=== PATIENT | male | born 2000 | race Caucasian/White ===

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

== ENCOUNTER 2021-03-23 23:26 | Emergency (ER) | payer OTHER ==
[~2021-03-23] VITALS: Ht 170.2 cm; Wt 72.6 kg
[2021-03-23 23:58] LABS: Basophils # (auto) 0 10 ^3/uL (0-0.2); Basophils % (auto) 0.4 % (0.0-2.0); Eosinophils # (auto) 0.5 10 ^3/uL (0-0.8); Eosinophils % (auto) 5.8 % (0.0-7.0); Hematocrit 42.7 % (41.0-53.0); Hemoglobin 14.6 g/dL (13.5-17.5); Lymphocytes # (auto) 1.8 10 ^3/uL (0.4-5.4); Lymphocytes % (auto) 21.7 % (10.0-50.0); Mean Corpuscular Hemoglobin 28.8 pg (28.0-32.0); Mean Corpuscular Hgb Conc. 34.2 g/dL (32.0-36.0); Mean Corpuscular Volume 84.1 fL (80.0-100.0); Monocytes # (auto) 0.4 10 ^3/uL (0-1.3); Monocytes % (auto) 5.1 % (0.0-12.0); Neutrophils # (auto) 5.5 10 ^3/uL (1.6-8.6); Nucleated Red Blood Cells % 0.2 %; Red Blood Cells 5.08 10^6/uL (4.5-5.90); White Blood Cell 8.2 10^3/uL (4.4-10.8)
[2021-03-24 00:14] LABS: Albumin 3.9 g/dL (3.4-5.0); BUN/Creatinine Ratio 19.5; Magnesium 2.1 mg/dL (1.6-2.6); Potassium 4.2 mmol/L (3.5-5.1)
[2021-03-24 00:17] LABS: Bilirubin, Total 0.2 mg/dL (0.2-1.0); Total Protein 7.7 g/dL (6.4-8.2)
[2021-03-24 01:29] VITALS: BP 101/68
== END 2021-03-24 01:38 | disposition home or self-care (01) ==
LOC: ER 23:26
DX: K82.8 Other specified diseases of gallbladder (principal)
CPT/HCPCS: 36415; 80053; 82150; 83690; 83735; 85025

== ENCOUNTER 2022-03-02 00:09 | Emergency (ER) | payer OTHER ==
[~2022-03-02] VITALS: Ht 172.7 cm; Wt 77.3 kg
[2022-03-02] MEDS ORDERED: KETOROLAC TROMETH 60MG/2ML VIAL IM ONE (00:30)
[2022-03-02] MEDS ORDERED: SODIUM CHLORIDE 0.9% 1,000 ML IV ONE (01:00)
[2022-03-02] MEDS ORDERED: PROPOFOL 10 MG/ML 20 ML IV ONE (01:00)
[2022-03-02] MEDS ORDERED: ONDANSETRON HCL 4 MG/2 ML VIAL IV ONE (01:00)
[2022-03-02] MEDS ORDERED: PROPOFOL 100 ML IV ONE (05:21)
[2022-03-02 07:59] VITALS: BP 133/81
== END 2022-03-02 08:02 | disposition home or self-care (01) ==
LOC: ER 00:09
DX: S43.004A Unspecified dislocation of right shoulder joint, initial encounter (principal); Z98.890 Other specified postprocedural states; X58.XXXA Exposure to other specified factors, initial encounter; Y93.89 Activity, other specified; Y92.89 Other specified places as the place of occurrence of the external cause; Y99.8 Other external cause status
CPT/HCPCS: 73020; 73030; 96361; 96372; 96374; 99284; J1885; J2405; J2704; J7030